=== PATIENT | male | born 1970 | race Hispanic/Latino ===

== ENCOUNTER 2016-08-10 10:50 | Emergency (ER) | payer OTHER ==
[2016-08-10 10:56] VITALS: BP 136/83; PULSE 74; RESP 19; TEMP 98.2
[2016-08-10 11:35] VITALS: O2SAT 98
--- NOTE | 2016-08-10 11:52 | ED PDOC ---
HPI: Abdomen Time Seen by Provider: 08/10/16 11:44 Chief Complaint (Nursing): Abdominal Pain History Per: Patient (Intermittent right sided abd pain x 2 months. No NVD. No dysuria. No fever. H/o kidney stones) Onset/Duration Of Symptoms: Other (2 months) Current Symptoms Are (Timing): Intermittent Episodes Severity: Moderate Pain Scale Rating Of: 3 Location Of Pain/Discomfort: RLQ Quality Of Discomfort: Sharp Associated Symptoms: denies: Fever, Nausea, Vomiting, Diarrhea, Urinary Symptoms Exacerbating Factors: None Alleviating Factors: None Past Medical History Vital Signs: Last Vital Signs Temp 98.2 F 08/10/16 10:55 Pulse 74 08/10/16 10:55 Resp 19 08/10/16 10:55 BP 136/83 08/10/16 10:55 Pulse Ox 98 08/10/16 11:52 - Medical History PMH: Kidney Stones - Family History Family History: States: Unknown Family Hx - Home Medications Home Medications: Ambulatory Orders Medication Instructions Recorded Ciprofloxacin HCl [Cipro] 500 mg PO BID #20 tab 08/10/16 Tamsulosin [Flomax] 0.4 mg PO DAILY #5 cap 08/10/16 traMADol [Ultram] 50 mg PO Q8 #10 tab 08/10/16 - Allergies Allergies/Adverse Reactions: Allergies Allergy/AdvReac Type Severity Reaction Status Date / Time No Known Allergies Allergy Verified 08/10/16 11:11 Review of Systems ROS Statement: Except As Marked, All Systems Reviewed And Found Negative Gastrointestinal: Positive for: Abdominal Pain Physical Exam - Reviewed Nursing Documentation Reviewed: Yes Vital Signs Reviewed: Yes - Physical Exam Appears: Positive for: Non-toxic, No Acute Distress Head Exam: Positive for: ATRAUMATIC, NORMAL INSPECTION, NORMOCEPHALIC Skin: Positive for: Normal Color, Warm, DRY Eye Exam: Positive for: EOMI, Normal appearance, PERRL ENT: Positive for: Normal ENT Inspection Neck: Positive for: Normal, Painless ROM Cardiovascular/Chest: Positive for: Regular Rate, Rhythm Respiratory: Positive for: CNT, Normal Breath Sounds Gastrointestinal/Abdominal: Positive for: Normal Exam, Bowel Sounds, Soft. Negative for: Tenderness Back: Positive for: Normal Inspection Extremity: Positive for: Normal ROM Neurologic/Psych: Positive for: Alert, Oriented - ECG O2 Sat by Pulse Oximetry: 98 Disposition - Clinical Impression Clinical Impression: Kidney stone - Patient ED Disposition Is Patient to be Admitted: No Counseled Patient/Family Regarding: Studies Performed, Diagnosis, Need For Followup, Rx Given - Disposition Referrals: Lb Nieves MD [Staff Provider] - Disposition: Routine/Home Disposition Time: 15:06 Condition: FAIR Prescriptions: Ciprofloxacin HCl [Cipro] 500 mg PO BID #20 tab Tamsulosin [Flomax] 0.4 mg PO DAILY #5 cap traMADol [Ultram] 50 mg PO Q8 #10 tab Instructions: Kidney Stones (ED) Print Language: SAMI
--- NOTE | 2016-08-10 14:02 | CT ---
PROCEDURE: CT Abdomen and Pelvis without Oral or IV contrast. HISTORY: r/o kidney stone COMPARISON: None available TECHNIQUE: Contiguous axial images of the abdomen and pelvis. No oral or IV contrast administered. Coronal and Sagittal reformats generated and reviewed. Radiation dose: Total exam DLP = 708.61 mGy-cm. This CT exam was performed using one or more of the following dose reduction techniques: Automated exposure control, adjustment of the mA and/or kV according to patient size, and/or use of iterative reconstruction technique. FINDINGS: There is limited evaluation of the solid organs without the administration of IV contrast. LOWER THORAX: No visible consolidation, pleural effusion, or pneumothorax. Small hiatal hernia/distal esophageal wall thickening. LIVER: Unremarkable unenhanced appearance. GALLBLADDER AND BILE DUCTS: Unremarkable unenhanced appearance. PANCREAS: Unremarkable unenhanced appearance. SPLEEN: Unremarkable unenhanced appearance. ADRENALS: Unremarkable unenhanced appearance. KIDNEYS AND URETERS: Punctate bilateral nonobstructing calculi measuring less than 4 mm. No hydronephrosis or obstructing renal calculus. BLADDER: The urinary bladder appears unremarkable. REPRODUCTIVE: The prostate gland measures approximately 4.1 x 4.7 cm APPENDIX: The appendix appears within normal limits of caliber. No secondary signs of acute appendicitis. BOWEL: The stomach is nondistended. Lack of oral contrast limits evaluation for bowel pathology. The bowel loops appear within normal limits of caliber without evidence of intestinal obstruction. Mild constipation. PERITONEUM: No significant free fluid. No definite free air. LYMPH NODES: No bulky lymphadenopathy identified. VASCULATURE: No aortic aneurysm. BONES: No acute osseous abnormality is detected. OTHER FINDINGS: None. IMPRESSION: Punctate bilateral nonobstructing renal calculi. No hydronephrosis. Small hiatal hernia/ distal esophageal wall thickening. Mild constipation. Enlargement of the prostate gland; correlate with PSA.
== END 2016-08-10 15:54 | disposition home or self-care (01) ==
LOC: H.ER 10:50
DX: N20.0 Calculus of kidney (principal)